=== PATIENT | male | born 1960 ===

== ENCOUNTER 2016-03-24 19:58 | Emergency (ER) | payer MEDICARE, OTHER ==
[~2016-03-24 19:58] MED LIST: PERCOCET1 TA1 PO; [UNRECOGNIZED DRUG - OTHER]
--- NOTE | 2016-03-24 23:25 | DIAGNOSTIC IMAGING REPORT ---
PROCEDURE: CT ABD/PELVIS WITH CONTRAST INDICATION: Lower abdominal and pelvic pain. Status post partial colectomy and left colostomy for colon carcinoma. TECHNIQUE: 145 ml of Isovue 300 were injected intravenously and axial images were obtained of the entire abdomen and pelvis with sagittal and coronal reformations. COMPARISON: Comparison made to CT abdomen and pelvis on 02/24/2015. FINDINGS: ABDOMEN: Status post right lobe hepatectomy. Liver is otherwise normal. Status post cholecystectomy. Spleen, pancreas, kidneys, and aorta are normal. Status post partial colectomy and left lower quadrant colostomy. Left lower quadrant colostomy. Bowel pattern is normal, including appendix. PELVIS: Status post low anterior pelvic resection (surgical mesh). There is mild increased to 0.9 cm soft tissue mass along the lateral margin of the rectum. Pelvic structures are otherwise normal. No evidence of free fluid. IMPRESSION: 1. Status post right hepatectomy and cholecystectomy. 2. Status post left lower quadrant colostomy. 3. Status post low anterior resection. There is a 3.2 cm nodular mass along the left lateral right common consistent with recurrent neoplasm (previously documented). 4. No evidence of acute process. 5. Findings discussed with Dr. Braulio Oliver. All CT scans at this facility use dose modulation, iterative reconstruction, and/or weight-based dosing when appropriate to reduce radiation dose to as low as reasonably achievable.
--- NOTE | 2016-03-25 00:27 | ED ORDER SUMMARY ---
..... Patient: ORQUIDEA ALBARRAN OrderSheet [facility] VisitID: [id number] [address] [place] [address] 55y, M Registration Date/Time: 03/24/2016 ORDER SHEET Weight: 120.2 kg Allergies: No Known Drug Allergy GENERAL ORDERS: CBC w Diff Urgent (20:48 03/24/2016 Ludmila SU) (Ack 20:54 CHagerty ER Cart Pusher) (21:16 Ale R.N.) CMP Urgent (20:48 03/24/2016 Ludmila SU) (Ack 20:54 Cristin ER Cart Pusher) (21:16 Ale R.N.) UA-Culture if indicated Urgent (20:48 03/24/2016 Ludmila SU) (Ack 20:54 Cristin ER Cart Pusher) (21:16 Ale R.N.) Amylase Urgent (20:48 03/24/2016 Ludmila SU) (Ack 20:54 CHagdunia ER Cart Pusher) (21:16 Ale R.N.) Lipase Urgent (20:48 03/24/2016 Ludmila SU) (Ack 20:54 Cristin ER Cart Pusher) (21:16 Elyelli R.N.) CT Abd/Pel w Cont (No) (N/A) Urgent (21:17 03/24/2016 Herman Mendez) (Ack 21:23 CHagerty ER Cart Pusher) (22:17 Ale R.N.) MEDICATION ORDERS: IV FLUIDS: IV NS : initial bolus 500 mL (1000 mL/hr), then 125 mL/hr for 4h (NOW); Urgent (20:48 03/24/2016 Ludmila SU) (21:27 Ale R.N.) Toradol IV 30 mg (NOW) (20:48 03/24/2016 Ludmila SU) (21:38 Ale R.N.) Dilaudid IV 0.5 mg (HIGH ALERT MEDICATION, NOW) (20:48 03/24/2016 Ludmila SU) (21:37 Ale R.N.) Zofran IV 4 mg (NOW) (20:48 03/24/2016 Ludmila SU) (21:36 Ale White) ORDER SHEET NOTES: [Electronically signed by Fred Cao R.N. (03:04 03/25/2016)] [Electronically signed by Braulio Oliver Dr. (11:40 03/28/2016)] [Electronically locked/signed by Fred Cao R.N. (03:04 03/25/2016)]
--- NOTE | 2016-03-25 00:27 | ED CLINICAL REPORT ---
Clinical Report - Physicians/Mid Levels [facility] [address] [place] [address] 03/24/2016 19:59 Patient: ORQUIDEA ALBARRAN Time Seen: 20:26. Arrived- By private vehicle. Historian- patient. HISTORY OF PRESENT ILLNESS Chief Complaint: FLANK PAIN. At its maximum, severity described as 8 / 10. When seen in the E.D., severity described as 7 / 10. This started about 1 1/2 weeks ago and is still present. It was gradual in onset and has been constant and waxing/waning. It is described as cramping and it is described as located in the right flank and radiating to the abdomen. No nausea or vomiting. He has had loss of appetite and loose stools. (Patient has a history of anal cancer. He underwent resection of this and 18 cm of his colon. He has a colostomy in his left lower quadrant. In addition to the flank pain, he is reporting pain in the area where his anus and rectum used to be). Similar symptoms previously: REVIEW OF SYSTEMS The patient has had fever, chills and burning pain on urination. It has occurred during urination and experienced sweats. No calf pain, chest pain, cough, difficulty breathing or pedal edema. No palpitations, black stools or bloody stools. All systems otherwise negative, except as recorded above. PAST HISTORY PCP - [facility]. Problems: Thyroid Disease. Rectal Bleed. Acute Pain. Sciatica. Cancer. Cancer. Additional Surgeries: Colon resection 18 in. Colonoscopy. Hand surgery []. Liver resection. Tonsillectomy. Medications: Levothyroxine Sodium Oral. Allergies: No Known Drug Allergy. SOCIAL HISTORY Never smoker. No alcohol use or drug use. Residence: [facility] he lives with spouse. FAMILY HISTORY Cancer in first-degree relative (mother and father). ADDITIONAL NOTES The nursing notes have been reviewed. PHYSICAL EXAM Vital Signs: 03/24/2016 20:06 BP: 149/77. HR: 113. RR: 18. O2 saturation: 95%. Temp: 101.2 F. Pain level now: 02/14. Have been reviewed. Appearance: Alert. Eyes: Pupils equal, round and reactive to light. ENT: Pharynx normal. Neck: Normal inspection. Neck supple. CVS: Normal heart rate and rhythm. Heart sounds normal. Respiratory: No respiratory distress. Breath sounds normal. Abdomen: Obese. Multiple surgical scars present. (LLQ ostomy). Back: Normal inspection. No CVA tenderness. Rectal: (a healed surgical scar at the site where his anus used to be). Extremities: Extremities exhibit normal ROM. No calf tenderness. No lower extremity edema. LABS, X-RAYS, AND EKG Abdominal CT: PROCEDURE: CT ABD/PELVIS WITH CONTRAST INDICATION: Lower abdominal and pelvic pain. Status post partial colectomy and left colostomy for colon carcinoma. TECHNIQUE: 145 ml of Isovue 300 were injected intravenously and axial images were obtained of the entire abdomen and pelvis with sagittal and coronal reformations. COMPARISON: Comparison made to CT abdomen and pelvis on 02/24/2015. FINDINGS: ABDOMEN: Status post right lobe hepatectomy. Liver is otherwise normal. Status post cholecystectomy. Spleen, pancreas, kidneys, and aorta are normal. Status post partial colectomy and left lower quadrant colostomy. Left lower quadrant colostomy. Bowel pattern is normal, including appendix. PELVIS: Status post low anterior pelvic resection (surgical mesh). There is mild increased to 0.9 cm soft tissue mass along the lateral margin of the rectum. Pelvic structures are otherwise normal. No evidence of free fluid. IMPRESSION: 1. Status post right hepatectomy and cholecystectomy. 2. Status post left lower quadrant colostomy. 3. Status post low anterior resection. There is a 3.2 cm nodular mass along the left lateral right common consistent with recurrent neoplasm (previously documented). 4. No evidence of acute process. Study type: abdomen and pelvis. Abdominal CT performed with IV contrast. The study was independently viewed by me and interpreted by the radiologist. The study was discussed with the radiologist (via phone). Laboratory Tests: UA-Culture if indicated: (PAUL: 03/24/2016 21:15) ( MsgRcvd 03/24/2016 21:55) Final results Test Result Flag Units (Reference) URINE COLOR YELLOW URINE APPEARANCE CLEAR URINE GLUCOSE NEGATIVE (NEGATIVE) URINE BILIRUBIN NEGATIVE (NEGATIVE) URINE KETONE NEGATIVE (NEGATIVE) URINE SPECIFIC GRAVITY 1.015 (1.010-1.030) URINE PH 7.5 (5.0-8.0) URINE PROTEIN TRACE (NEGATIVE) URINE UROBILINOGEN 2.0 EU/dL (0.2-1.0) The urobilinogen reagent area may react with interferingsubstances known to react with Josefina's reagent such asp-aminosalicylic acid and sulfonamides. Atypical colorreactions may be obtained in the presence of highconcentrations of p-aminobenzoic acid. The absence ofurobilinogen cannot be determined with this test. URINE NITRITE NEGATIVE (NEGATIVE) URINE BLOOD 2+ (NEGATIVE) URINE LEUK ESTERASE NEGATIVE (NEGATIVE) URINE RBC 3-5 rbc/hpf (0-1) URINE WBC 1-3 wbc/hpf (0-1) URINE EPITHELIAL CELLS 1-3 EPI/hpf (0-5) URINE BACTERIA TRACE (<1+) (NONE SEEN) URINE COMMENT CULT NOT INDICATED AMORPHOUS CRYSTALS 2+URINE CULTURES ARE SET-UP BASED ON THE FOLLOWING CRITERIA:POSITIVE NITRITEPOSITIVE LEUKOCYTE ESTERASEGREATER THAN 10 WHITE BLOOD CELLSMODERATE (2+) OR GREATER BACTERIA CBC w Diff: (PAUL: 03/24/2016 21:15) ( MsgRcvd 03/24/2016 21:50) Final results Test Result Flag Units (Reference) WHITE BLOOD COUNT 13.0 H K/uL (4.5-11.5) RED BLOOD COUNT 4.34 L M/uL (4.50-5.90) HEMOGLOBIN 12.7 L gm/dL (13.5-17.5) HEMATOCRIT 37.3 L % (41.0-53.0) MEAN CELL VOLUME 86 fL (80-100) MEAN CORPUSCULAR HGB 29 pg (26-34) MEAN CORPUSCULAR HGB CONC 34 g/dL (31-37) RED CELL DISTRIBUTION WIDTH 15.4 H % (11.6-14.8) PLATELET COUNT 267 K/uL (150-400) NEUTROPHIL % 79.7 H % (50-75) LYMPH % 14.8 L % (25-40) MONO % 4.3 % (3-14) EOSINOPHIL % 0.9 % (0-4) BASOPHIL % 0.3 % (0-2) CMP: (PAUL: 03/24/2016 21:15) ( MsgRcvd 03/24/2016 21:47) Final results Test Result Flag Units (Reference) GLUCOSE 162 H mg/dL (70-110) BUN 10 mg/dL (7-18) CREATININE 1.0 mg/dL (0.6-1.3) Estimated GFR >60 mL/min Estimated GFR- >60 mL/min Note: Persistent reduction over 3 months in eGFR<60 mL/min/1.73 m2 defines CKD. Patients with eGFR values>=60 mL/min/1.73 m2 may also have CKD if evidence ofpersistent proteinuria. Additional information may be foundat www.[email or web address].org. SODIUM 140 mmol/L (136-145) POTASSIUM 3.7 mmol/L (3.5-5.1) CHLORIDE 105 mmol/L (98-107) CARBON DIOXIDE 25 mmol/L (21-32) CALCIUM 8.6 mg/dL (8.5-10.1) TOTAL PROTEIN 7.5 g/dL (6.4-8.2) ALBUMIN 3.0 L g/dL (3.3-5.0) BILIRUBIN, TOTAL 0.5 mg/dL (0.0-1.0) ALKALINE PHOSPHATASE 130 H U/L (46-116) AST (SGOT) 26 U/L (15-37) ALT (SGPT) 44 U/L (12-78) LIPASE 186 U/L (73-393) AMYLASE 38 U/L (25-115) . PROGRESS AND PROCEDURES Course of Care: 21:18 03/24/16. the case was discussed with Dr. Oliver change of shift. We reviewed the patient's history and examination findings. He will follow up on the results the patient's pending studies and will arrange an appropriate disposition for him. - KALYAN the patient is a pleasant 55 yo male with past medical history significant for malignancy presenting for evaluation of flank pain. Studies have been ordered by the prior physician. Acuity assessment and plan. I have introduced myself to the patient and performed my own independent examination. At this time or awaiting laboratory studies and CT scan results. Workup shows patient to have a mild urinary tract infection because of the patient's symptoms, we will treat the patient with antibiotics. No acute abdomen maladies noted on abdominal CT scan except for prior masses noted. Patient appears to be nontoxic and in no acute distress. We'll provide patient with antiemetics and treat conservatively as an outpatient. Do not fill patient is admitted to the hospital at this time or require further emergency department workup. Patient is hemodynamically stable Do not the patient is a surgical abdomen. Do not feel patient's symptoms are related to paraspinal infection or more sinister etiology. Prior to patient's departure from the emergency department repeat examination continues to be benign. Patient is nontoxic. Discussed the patient workup, diagnosis, home care, follow-up, and return precautions. All questions answered. The patient expressed understanding of these instructions and was agreeable to them. CLINICAL IMPRESSION 03/24/2016 20:06 BP: 149/77. HR: 113. RR: 18. O2 saturation: 95%. Temp: 101.2 F. Pain level now: 1/10. Blood pressure normal. Oxygen saturation normal. Mild dehydration (acute fluid responsive). Acute urinary tract infection with cystitis and hematuria. Moderate leukocytosis. INSTRUCTIONS Warnings: GENERAL WARNINGS: Return or contact your physician immediately if your condition worsens or changes unexpectedly, if not improving as expected, or if other problems arise. SPECIFICALLY, return if you develop pain, fever, vomiting, the inability to keep fluids down, blood in vomitus, blood in diarrhea, fainting or lightheadedness. Your Current Medications: CONTINUE TAKING THE FOLLOWING MEDICATIONS: Levothyroxine Sodium Oral. Prescription Medications: [place] 5 mg / 325 mg tablets: take 1 orally every 6 hours as needed for pain. Dispense twelve (12). No refill. Substitution is permissible. Bactrim DS 800 mg / 160 mg: take 1 tablet orally every 12 hours for 10 days. Substitution is permissible. (Disp 20 tabs) Follow-up: Return to the emergency department as needed. Follow up with your doctor in three days. Reason for referral: recheck today's concerns. Summary of care provided to patient via paper. Screening today revealed the patient's blood pressure to be in the normal range. The patient should follow up with a primary care provider for blood pressure management. Understanding of the discharge instructions verbalized by patient. (Electronically signed by Braulio Oliver Dr. 03/28/2016 11:40)
--- NOTE | 2016-03-25 00:27 | ED ORDER SUMMARY ---
..... Patient: ORQUIDEA ALBARRAN OrderSheet [facility] VisitID: [id number] [address] [place] [address] 55y, M Registration Date/Time: 03/24/2016 ORDER SHEET Weight: 120.2 kg Allergies: No Known Drug Allergy GENERAL ORDERS: CBC w Diff Urgent (20:48 03/24/2016 Ludmila SU) (Ack 20:54 CHagerty ER Account Financial Manager) (21:16 Ale R.N.) CMP Urgent (20:48 03/24/2016 Ludmila SU) (Ack 20:54 Cristin ER Account Financial Manager) (21:16 Ale R.N.) UA-Culture if indicated Urgent (20:48 03/24/2016 Ludmila SU) (Ack 20:54 Cristin ER Account Financial Manager) (21:16 Ale R.N.) Amylase Urgent (20:48 03/24/2016 Ludmila SU) (Ack 20:54 CHagdunia ER Account Financial Manager) (21:16 Ale R.N.) Lipase Urgent (20:48 03/24/2016 Ludmila SU) (Ack 20:54 Cristin ER Account Financial Manager) (21:16 Elyelli R.N.) CT Abd/Pel w Cont (No) (N/A) Urgent (21:17 03/24/2016 Herman Mendez) (Ack 21:23 CHagerty ER Account Financial Manager) (22:17 Ale R.N.) MEDICATION ORDERS: IV FLUIDS: IV NS : initial bolus 500 mL (1000 mL/hr), then 125 mL/hr for 4h (NOW); Urgent (20:48 03/24/2016 Ludmila SU) (21:27 Ale R.N.) Toradol IV 30 mg (NOW) (20:48 03/24/2016 Ludmila SU) (21:38 Ale R.N.) Dilaudid IV 0.5 mg (HIGH ALERT MEDICATION, NOW) (20:48 03/24/2016 Ludmila SU) (21:37 Ale R.N.) Zofran IV 4 mg (NOW) (20:48 03/24/2016 Ludmila SU) (21:36 Ale White) ORDER SHEET NOTES: [Electronically signed by Fred Cao R.N. (03:04 03/25/2016)] [Electronically signed by Braulio Oliver Dr. (11:40 03/28/2016)] [Electronically locked/signed by Fred Cao R.N. (03:04 03/25/2016)]
--- NOTE | 2016-03-25 00:27 | ED NURSING NOTES ---
Clinical Report - Nurses [facility] [address] [place] [address] 03/24/2016 19:59 Patient: ORQUIDEA ALBARRAN TRIAGE Triage time 20:05 Mar 24 2016. Acuity: LEVEL 3. Chief Complaint: (Anal Pain, which pt attributes to colon surgery.). Alert. GULSHAN COMA SCORE: [place] Coma Scale: 15- eyes open spontaneously (4); best verbal response- oriented x 4 (5); best motor response- obeys commands (6). --20:18 Fred Lal R.N. 20:06 03/24/16. BP: 149/77. HR: 113. RR: 18. O2 saturation: 95%. Temp: 101.2 F. Pain level now: 02/14. Additional comments: but 7-8 when he starts to move. --20:18 Fred Lal R.N. SEPSIS SCREEN: Sepsis Screen. Infection suspected/documented. Temperature greater than 38.3 degrees C (101 degrees F). No acute mental status change. --20:18 Fred Lal R.N. Weight: 120.2 kg. Height/Length: 69 inches Per Patient. BMI: 39.2. --20:15 Fred Lal R.N. Medications Lobaxil 175mcg daily. --20:11 Fred Lal R.N. Allergies No Known Drug Allergy. --20:11 Fred Lal R.N. History Arrived by private vehicle. Historian: patient. Primary physician (Rory Draper [facility] (surgeon). PCP is [facility].). ( Colon surgery 9-10 months ago where a colostomy was placed. Pt states that he had some pain ever since the surgery and now it has worsened in the last month.). Onset. (about month ago). He has had fever. ( Feet are hurting and weakness). 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 PAST MEDICAL HX: Immunizations: status is unknown. SOCIAL HX: Former smoker, end date 1996. Alcohol use. (27 years ago). No drug use. No infectious disease exposure. ABUSE ASSESSMENT: No report of abuse. FALL RISK ASSESSMENT: Fall risk assessment completed. No fall risk identified. NUTRITIONAL RISK ASSESSMENT: The nutritional risk assessment revealed no deficiencies. FUNCTIONAL ASSESSMENT: Functional assessment: no impairments noted. LEARNING NEEDS ASSESSMENT: The learning needs assessment revealed no barriers. SKIN INTEGRITY ASSESSMENT: Skin integrity risk assessment completed. No skin integrity risk identified. --20:18 Fred Lal R.N. PROBLEMS: Thyroid Disease. Rectal Bleed. Acute Pain. Sciatica. Immunizations. Cancer. Cancer. --20:13 Fred Lal R.N. ADDITIONAL SURGERIES: Colon resection 18 in. Colonoscopy. Hand surgery []. Liver resection. Tonsillectomy. --20:13 Fred Lal R.N. Interventions ID band on patient. To treatment room. --20:18 Fred Lal R.N. PHYSICAL ASSESSMENT Ambulatory to room. GENERAL / NEURO / PSYCH: Alert. Oriented X 4. HEENT: No facial asymmetry noted. Mucous membranes are pink. RESPIRATORY: Breath sounds within normal limits. ( "pain in the (R) Lung/Ribs). CVS: Capillary refill less than 2 seconds. Pulses within normal limits. GI / : Abdomen soft. SKIN: Skin intact. Skin is warm and dry. Normal skin turgor. --20:19 Fred Lal R.N. NURSING PROGRESS NOTES Patient gowned. Reassurance given to the patient and patient's family. Patient identifiers checked. Call light placed in reach. Side rails up x 1. Bed placed in lowest position. Brakes of bed on. Patient ready for evaluation- chart flagged and ED physician notified. --20:20 Fred Lal R.N. 21:17 03/24/2016 Site #1 started via IV in the right wrist with an 20g angiocath, with aseptic technique and good blood return; one attempt. Blood drawn: rainbow set. Saline lock flushed with 10 mL saline. --21:17 Fred Lal R.N. 21:22 03/24/2016 Started bag #1 1000 mL IV Fluids IV NS (Saline); bolus of 500 mL over 30 minute(s) then at 125 mL/hr over 4 hour(s) via site #1 via IV pump. Allergies verified and confirmed 5 rights. IV patency established. IV site checked: no pain, redness, or swelling. IV flushed thoroughly pre- and post-medication administration. --21:27 Fred Lal R.N. 21:26 03/24/2016 Zofran (Ondansetron HCl) IVP 4 mg given over 2 minute(s) via site #1. Allergies verified and confirmed 5 rights. IV patency established. IV site checked: no pain, redness, or swelling. IV flushed thoroughly pre- and post-medication administration. IVP given by RN. --21:36 Fred Lal R.N. 21:32 03/24/2016 Dilaudid (HYDROmorphone HCl PF) IVP 0.5 mg given over 2 minute(s) via site #1. Allergies verified, confirmed 5 rights and sedative warning given. IV patency established. IV site checked: no pain, redness, or swelling. IV flushed thoroughly pre- and post-medication administration. IVP given by RN. --21:37 Fred Lal R.N. 21:35 03/24/2016 Toradol IVP 30 mg given over 2 minute(s) via site #1. Allergies verified and confirmed 5 rights. IV patency established. IV site checked: no pain, redness, or swelling. IV flushed thoroughly pre- and post-medication administration. IVP given by RN. --21:38 Fred Lal R.N. Patient transported to [place] by stretcher with [employer]. (22:10 Mar 24 2016). --22:18 Fred Lal R.N. 01:30. The patient is calm and resting quietly. RESPIRATORY: No respiratory distress. SKIN: Skin is warm and dry. Skin color within normal limits. --01:35 Fred Cao R.N. 01:26 03/25/2016 IV Fluids IV NS Discontinued: bag #1 infused upon discharge. Total amount infused: 1000 mL. IV patency established. IV site checked: no pain, redness, or swelling. IV flushed thoroughly. --01:37 Fred Cao R.N. DISPOSITION / DISCHARGE 01:27 03/25/2016 Site #1 removed upon discharge. Catheter intact. Bandage applied. --01:33 Fred Cao R.N. Departure time: 01:33. Condition at departure: stable. No learning barriers present. Discharge instructions provided and reviewed with the patient. Reviewed medication(s) side effects, precautions, dosing and course information. Prescription(s) given to the patient. Patient verbalized understanding. Written instructions provided in [place]. The patient was discharged home and accompanied by spouse. He left the Emergency Department ambulatory and via private vehicle. Spouse driving. FALL RISK ASSESSMENT: Fall risk assessment completed. No fall risk identified. --01:34 Fred Cao R.N. 01:25 03/25/16. BP: 120/57. HR: 73. RR: 16. O2 saturation: 99% on room air. Temp: 98.1 F (oral). Pain level now: 04/14. --01:34 Fred Cao R.N. Locked/Released at 03/25/2016 3:04 by Fred Cao R.N.
--- NOTE | 2016-03-25 00:27 | ED NURSING NOTES ---
Clinical Report - [facility] [address] [place] [address] 03/24/2016 19:59 Patient: ORQUIDEA ALBARRAN TRIAGE Triage time 20:05 Mar 24 2016. Acuity: LEVEL 3. Chief Complaint: (Anal Pain, which pt attributes to colon surgery.). Alert. GULSHAN COMA SCORE: [place] Coma Scale: 15- eyes open spontaneously (4); best verbal response- oriented x 4 (5); best motor response- obeys commands (6). --20:18 Fred Lal R.N. 20:06 03/24/16. BP: 149/77. HR: 113. RR: 18. O2 saturation: 95%. Temp: 101.2 F. Pain level now: 02/14. Additional comments: but 7-8 when he starts to move. --20:18 Fred Lal R.N. SEPSIS SCREEN: Sepsis Screen. Infection suspected/documented. Temperature greater than 38.3 degrees C (101 degrees F). No acute mental status change. --20:18 Fred Lal R.N. Weight: 120.2 kg. Height/Length: 69 inches Per Patient. BMI: 39.2. --20:15 Fred Lal R.N. Medications Lobaxil 175mcg daily. --20:11 Fred Lal R.N. Allergies No Known Drug Allergy. --20:11 Fred Lal R.N. History Arrived by private vehicle. Historian: patient. Primary physician (Rory Draper [facility] (surgeon). PCP is [facility] ( Colon surgery 9-10 months ago where a colostomy was placed. Pt states that he had some pain ever since the surgery and now it has worsened in the last month.). Onset. (about month ago). He has had fever. ( Feet are hurting and weakness). 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 PAST MEDICAL HX: Immunizations: status is unknown. SOCIAL HX: Former smoker, end date 1996. Alcohol use. (27 years ago). No drug use. No infectious disease exposure. ABUSE ASSESSMENT: No report of abuse. FALL RISK ASSESSMENT: Fall risk assessment completed. No fall risk identified. NUTRITIONAL RISK ASSESSMENT: The nutritional risk assessment revealed no deficiencies. FUNCTIONAL ASSESSMENT: Functional assessment: no impairments noted. LEARNING NEEDS ASSESSMENT: The learning needs assessment revealed no barriers. SKIN INTEGRITY ASSESSMENT: Skin integrity risk assessment completed. No skin integrity risk identified. --20:18 Fred Lal R.N. PROBLEMS: Thyroid Disease. Rectal Bleed. Acute Pain. Sciatica. Immunizations. Cancer. Cancer. --20:13 Fred Lal R.N. ADDITIONAL SURGERIES: Colon resection 18 in. Colonoscopy. Hand surgery []. Liver resection. Tonsillectomy. --20:13 Ferd Lal R.N. Interventions ID band on patient. To treatment room. --20:18 Fred Lal R.N. PHYSICAL ASSESSMENT Ambulatory to room. GENERAL / NEURO / PSYCH: Alert. Oriented X 4. HEENT: No facial asymmetry noted. Mucous membranes are pink. RESPIRATORY: Breath sounds within normal limits. ( "pain in the (R) Lung/Ribs). CVS: Capillary refill less than 2 seconds. Pulses within normal limits. GI / : Abdomen soft. SKIN: Skin intact. Skin is warm and dry. Normal skin turgor. --20:19 Fred Lal R.N. NURSING PROGRESS NOTES Patient gowned. Reassurance given to the patient and patient's family. Patient identifiers checked. Call light placed in reach. Side rails up x 1. Bed placed in lowest position. Brakes of bed on. Patient ready for evaluation- chart flagged and ED physician notified. --20:20 Fred Lal R.N. 21:17 03/24/2016 Site #1 started via IV in the right wrist with an 20g angiocath, with aseptic technique and good blood return; one attempt. Blood drawn: rainbow set. Saline lock flushed with 10 mL saline. --21:17 Fred Lal R.N. 21:22 03/24/2016 Started bag #1 1000 mL IV Fluids IV NS (Saline); bolus of 500 mL over 30 minute(s) then at 125 mL/hr over 4 hour(s) via site #1 via IV pump. Allergies verified and confirmed 5 rights. IV patency established. IV site checked: no pain, redness, or swelling. IV flushed thoroughly pre- and post-medication administration. --21:27 Fred Lal R.N. 21:26 03/24/2016 Zofran (Ondansetron HCl) IVP 4 mg given over 2 minute(s) via site #1. Allergies verified and confirmed 5 rights. IV patency established. IV site checked: no pain, redness, or swelling. IV flushed thoroughly pre- and post-medication administration. IVP given by RN. --21:36 Fred Lal R.N. 21:32 03/24/2016 Dilaudid (HYDROmorphone HCl PF) IVP 0.5 mg given over 2 minute(s) via site #1. Allergies verified, confirmed 5 rights and sedative warning given. IV patency established. IV site checked: no pain, redness, or swelling. IV flushed thoroughly pre- and post-medication administration. IVP given by RN. --21:37 Fred Lal R.N. 21:35 03/24/2016 Toradol IVP 30 mg given over 2 minute(s) via site #1. Allergies verified and confirmed 5 rights. IV patency established. IV site checked: no pain, redness, or swelling. IV flushed thoroughly pre- and post-medication administration. IVP given by RN. --21:38 Fred Lal R.N. Patient transported to NH by stretcher with [employer]. (22:10 Mar 24 2016). --22:18 Fred Lal R.N. 01:30. The patient is calm and resting quietly. RESPIRATORY: No respiratory distress. SKIN: Skin is warm and dry. Skin color within normal limits. --01:35 Fred Cao R.N. 01:26 03/25/2016 IV Fluids IV NS Discontinued: bag #1 infused upon discharge. Total amount infused: 1000 mL. IV patency established. IV site checked: no pain, redness, or swelling. IV flushed thoroughly. --01:37 Fred Cao R.N. DISPOSITION / DISCHARGE 01:27 03/25/2016 Site #1 removed upon discharge. Catheter intact. Bandage applied. --01:33 Fred Cao R.N. Departure time: 01:33. Condition at departure: stable. No learning barriers present. Discharge instructions provided and reviewed with the patient. Reviewed medication(s) side effects, precautions, dosing and course information. Prescription(s) given to the patient. Patient verbalized understanding. Written instructions provided in [place]. The patient was discharged home and accompanied by spouse. He left the Emergency Department ambulatory and via private vehicle. Spouse driving. FALL RISK ASSESSMENT: Fall risk assessment completed. No fall risk identified. --01:34 Fred Cao R.N. 01:25 03/25/16. BP: 120/57. HR: 73. RR: 16. O2 saturation: 99% on room air. Temp: 98.1 F (oral). Pain level now: 04/14. --01:34 Fred Cao R.N. Locked/Released at 03/25/2016 3:04 by Fred Cao R.N.
--- NOTE | 2016-03-28 11:40 | ED MAR SUMMARY ---
..... Medication Administration Record [facility] [address] [place] [address] Patient: ORQUIDEA ALBARRAN Visit ID: [id number] 55y, M Weight: 120.2 kg Height/Length: 69 in BMI: 39.2 ALLERGIES: No Known Drug Allergy Start 21:03/24/2016 Fred Lal R.N., Stop 01:03/25/2016 Fred Cao R.N. Medication Administered: IV NS (SALINE), Dose: IV Fluids over 4 hour(s), Rate: 125 mL/hr, Bolus: 500 mL over 30 minute(s), Dispensed: 1000 mL bag, Site: #1 right wrist. Medication Ordered: IV NS : initial bolus 500 mL (1000 mL/hr), then 125 mL/hr for 4h (NOW); Urgent. Given :03/24/2016 Fred Lal R.N. Medication Administered: ZOFRAN [IVP] (ONDANSETRON HCL), Dose: 4 mg IVP over 2 minute(s), Site: #1 right wrist. Medication Ordered: Zofran IV 4 mg (NOW). Given :03/24/2016 Fred Lal R.N. Medication Administered: DILAUDID [IVP] (HYDROMORPHONE HCL PF), Dose: 0.5 mg IVP over 2 minute(s), Site: #1 right wrist. Medication Ordered: Dilaudid IV 0.5 mg (HIGH ALERT MEDICATION, NOW). Given :03/24/2016 Fred Lal R.N. Medication Administered: TORADOL [IVP], Dose: 30 mg IVP over 2 minute(s), Site: #1 right wrist. Medication Ordered: Toradol IV 30 mg (NOW).
--- NOTE | 2016-03-28 11:40 | ED MED RECONCILIATION SUMMARY ---
Patient: ORQUIDEA ALBARRAN Medication Reconciliation Report [facility] VisitID: [id number] [address] [place] [address] 55y, M Registration Date/Time: 03/24/2016 Weight: 120.2 kg Height/Length: 69 in. BMI: 39.2 ALLERGIES: No Known Drug Allergy The patient's Home Medications are listed below: CONTINUE TAKING THE FOLLOWING MEDICATIONS: Levothyroxine Sodium Oral The source(s) of the original Home Medication information: Not obtained. The following Medications were given to the patient in the Emergency Department: IV NS IV Fluids bolus 500 mL over 30 minute(s), then 125 mL/hr, administered: 03/24/2016 9:22:00 PM Zofran [IVP] IVP 4 mg, administered: 03/24/2016 9:26:00 PM Dilaudid [IVP] IVP 0.5 mg, administered: 03/24/2016 9:32:00 PM Toradol [IVP] IVP 30 mg, administered: 03/24/2016 9:35:00 PM The following Medications were prescribed to the patient: [place] 5 mg / 325 mg tablets: take 1 orally every 6 hours as needed for pain. Dispense twelve (12). No refill. Substitution is permissible. -- Braulio Oliver Dr. Bactrim DS 800 mg / 160 mg: take 1 tablet orally every 12 hours for 10 days. Substitution is permissible.(Disp 20 tabs) -- Braulio Oliver Dr.
--- NOTE | 2016-03-28 11:40 | ED DISCHARGE INSTRUCTIONS ---
Patient: ORQUIDEA ALBARRAN General Instructions [facility] VisitID: [id number] [place] [address] 55y, M Registration Date/Time: 03/24/2016 03/24/2016 20:06 BP: 149/77. HR: 113. RR: 18. O2 saturation: 95%. Temp: 101.2 F. Pain level now: 02/14. Blood pressure normal. Oxygen saturation normal. Mild dehydration (acute fluid responsive). Acute urinary tract infection with cystitis and hematuria. Moderate leukocytosis. INSTRUCTIONS Warnings: GENERAL WARNINGS: Return or contact your physician immediately if your condition worsens or changes unexpectedly, if not improving as expected, or if other problems arise. SPECIFICALLY, return if you develop pain, fever, vomiting, the inability to keep fluids down, blood in vomitus, blood in diarrhea, fainting or lightheadedness. Your Current Medications: CONTINUE TAKING THE FOLLOWING MEDICATIONS: Levothyroxine Sodium Oral. Prescription Medications: [place] 5 mg / 325 mg tablets: take 1 orally every 6 hours as needed for pain. Dispense twelve (12). No refill. Substitution is permissible. Bactrim DS 800 mg / 160 mg: take 1 tablet orally every 12 hours for 10 days. Substitution is permissible. (Disp 20 tabs) Follow-up: Return to the emergency department as needed. Follow up with your doctor in three days. Reason for referral: recheck today's concerns. Summary of care provided to patient via paper. Screening today revealed the patient's blood pressure to be in the normal range. The patient should follow up with a primary care provider for blood pressure management. Understanding of the discharge instructions verbalized by patient. ADDITIONAL INFORMATION Bladder Infection,Male (Adult) A bladder infection ("cystitis" or "UTI") usually causes a constant urge to urinate, and a burning when passing urine. Urine may be cloudy, smelly or dark. There may be also be pain in the lower abdomen. Cystitis in males is not common. It may be caused by a partial blockage in the urinary system that keeps the bladder from emptying completely. This is most often related to an enlarged prostate gland. Home Care: Drink lots of fluids (at least 6-8 glasses a day). This will flush the bacteria out of your bladder. Avoid sexual intercourse until your symptoms are gone. Avoid caffeine, alcohol, and spicy foods. They could irritate the bladder. A bladder infection is treated with antibiotics. You may also be given Pyridium (generic - phenazopyridine) to reduce burning with urination. This will cause urine to become a bright orange color, which can stain clothing. Follow Up with your doctor or this facility if ALL symptoms have not cleared within five days. It is important to keep your follow up appointment to discuss with your doctor the need for further tests of the urinary tract. Get Prompt Medical Attention if any of the following occur: Fever of 100.4F (38C) or higher, or as directed by your healthcare provider No improvement by the third day of treatment Increasing back or abdominal pain Repeated vomiting; unable to keep medicine down Weakness, dizziness or fainting Dehydration (Adult) Dehydration occurs when your body loses too much fluid. This may be the result of vomiting a lot or from diarrhea,sweating a lot, or a high fever. It may also happen if you dont drink enough fluid when youre sick. Misuse of diuretics (water pills) can also be a cause. Symptoms include thirst and feeling dizzy, weak, fatigued, or very drowsy. The diet described below is usually enough to treat most cases. Sometimes you may needmedicine. Home Care Follow these guidelines for home care: Drink at least 12 8-ounce glasses of fluid every day to overcome the dehydration. Fluid may include water; orange juice; lemonade; apple, grape, and cranberry juice; clear fruit drinks; electrolyte replacement and sports drinks; and teas and coffee without caffeine. If you have been diagnosed with a kidney disease, ask your doctor how much and what types of fluids you should drink to prevent dehydration. If you have kidney disease, drinking too much fluid can cause it build up in the your body and be dangerous to your health. If you have fever, muscle aching, or headache from a viral syndrome, you may useacetaminophen or ibuprofen, unless another medicine was prescribed for this.If you have chronic liver or kidney disease or ever had a stomach ulcer or GI bleeding, talk with your doctor before using these medicines. Don't take aspirin if you are younger than 18 and are ill with a fever.Aspirin raises the chance forsevere liver injury. Follow-up care Follow up with your health care provider if you don't get better in the next 24 to 48 hours. When to seek medical care Get prompt medical attention if any of theseoccur: Continued vomiting (cant keep liquids down) Frequent diarrhea (more than 5 times a day); blood (red or black color) or mucus in diarrhea Blood in vomit or stool Swollen abdomen or increasing abdominal pain Weakness, dizziness, or fainting Unusually drowsy or confused Reduced urine output or extreme thirst Fever of 100.4 F (38 C) oral or higher that does not get better with fever medication Hydrocodone Bitartrate, Acetaminophen Oral tablet What is this medicine? ACETAMINOPHEN; HYDROCODONE (a set a BALWINDER cristopher fen; donny droe KOE done) is a pain reliever. It is used to treat mild to moderate pain. How should I use this medicine? Take this medicine by mouth. Swallow it with a full glass of water. Follow the directions on the prescription label. If the medicine upsets your stomach, take the medicine with food or milk. Do not take more than you are told to take. Talk to your design consultant regarding the use of this medicine in children. This medicine is not approved for use in children. What side effects may I notice from receiving this medicine? Side effects that you should report to your doctor or health intensive care unit nurse as soon as possible: allergic reactions like skin rash, itching or hives, swelling of the face, lips, or tongue breathing problems confusion feeling faint or lightheaded, falls stomach pain yellowing of the eyes or skin Side effects that usually do not require medical attention (report to your doctor or health intensive care unit nurse if they continue or are bothersome): nausea, vomiting stomach upset What may interact with this medicine? alcohol antihistamines isoniazid medicines for depression, anxiety, or psychotic disturbances medicines for sleep muscle relaxants naltrexone narcotic medicines (opiates) for pain phenobarbital ritonavir tramadol What if I miss a dose? If you miss a dose, take it as soon as you can. If it is almost time for your next dose, take only that dose. Do not take double or extra doses. Where should I keep my medicine? Keep out of the reach of children. This medicine can be abused. Keep your medicine in a safe place to protect it from theft. Do not share this medicine with anyone. Selling or giving away this medicine is dangerous and against the law. Store at room temperature between 15 and 30 degrees C (59 and 86 degrees F). Protect from light. Keep container tightly closed. Throw away any unused medicine after the expiration date. Discard unused medicine and used packaging carefully. Pets and children can be harmed if they find used or lost packages. What should I tell my health care provider before I take this medicine? They need to know if you have any of these conditions: brain tumor Crohn's disease, inflammatory bowel disease, or ulcerative colitis drink more than 3 alcohol-containing drinks per day drug abuse or addiction head injury heart or circulation problems kidney disease or problems going to the bathroom liver disease lung disease, asthma, or breathing problems an unusual or allergic reaction to acetaminophen, hydrocodone, other opioid analgesics, other medicines, foods, dyes, or preservatives or trying to get breast-feeding What should I watch for while using this medicine? Tell your doctor or health intensive care unit nurse if your pain does not go away, if it gets worse, or if you have new or a different type of pain. You may develop tolerance to the medicine. Tolerance means that you will need a higher dose of the medicine for pain relief. Tolerance is normal and is expected if you take the medicine for a long time. Do not suddenly stop taking your medicine because you may develop a severe reaction. Your body becomes used to the medicine. This does NOT mean you are addicted. Addiction is a behavior related to getting and using a drug for a non-medical reason. If you have pain, you have a medical reason to take pain medicine. Your doctor will tell you how much medicine to take. If your doctor wants you to stop the medicine, the dose will be slowly lowered over time to avoid any side effects. You may get drowsy or dizzy when you first start taking the medicine or change doses. Do not drive, use machinery, or do anything that may be dangerous until you know how the medicine affects you. Stand or sit up slowly. There are different types of narcotic medicines (opiates) for pain. If you take more than one type at the same time, you may have more side effects. Give your health care provider a list of all medicines you use. Your doctor will tell you how much medicine to take. Do not take more medicine than directed. Call emergency for help if you have problems breathing. The medicine will cause constipation. Try to have a bowel movement at least every 2 to 3 days. If you do not have a bowel movement for 3 days, call your doctor or health intensive care unit nurse. Too much acetaminophen can be very dangerous. Do not take Tylenol (acetaminophen) or medicines that contain acetaminophen with this medicine. Many non-prescription medicines contain acetaminophen. Always read the labels carefully. Sulfamethoxazole, Trimethoprim Oral tablet What is this medicine? SULFAMETHOXAZOLE; TRIMETHOPRIM or SMX-TMP (suhl fuh meth OK loi zohl; trye METH oh prim) is a combination of a sulfonamide antibiotic and a second antibiotic, trimethoprim. It is used to treat or prevent certain kinds of bacterial infections. It will not work for colds, flu, or other viral infections. How should I use this medicine? Take this medicine by mouth with a full glass of water. Follow the directions on the prescription label. Take your medicine at regular intervals. Do not take it more often than directed. Do not skip doses or stop your medicine early. Talk to your design consultant regarding the use of this medicine in children. Special care may be needed. This medicine has been used in children as young as 2 months of age. What side effects may I notice from receiving this medicine? Side effects that you should report to your doctor or health intensive care unit nurse as soon as possible: allergic reactions like skin rash or hives, swelling of the face, lips, or tongue breathing problems fever or chills, sore throat irregular heartbeat, chest pain joint or muscle pain pain or difficulty passing urine red pinpoint spots on skin redness, blistering, peeling or loosening of the skin, including inside the mouth unusual bleeding or bruising unusually weak or tired yellowing of the eyes or skin Side effects that usually do not require medical attention (report to your doctor or health intensive care unit nurse if they continue or are bothersome): diarrhea dizziness headache loss of appetite nausea, vomiting nervousness What may interact with this medicine? Do not take this medicine with any of the following medications: aminobenzoate potassium dofetilide metronidazole This medicine may also interact with the following medications: JIM inhibitors like benazepril, enalapril, lisinopril, and ramipril cyclosporine digoxin diuretics indomethacin medicines for diabetes methenamine methotrexate phenytoin potassium supplements pyrimethamine sulfinpyrazone tricyclic antidepressants warfarin What if I miss a dose? If you miss a dose, take it as soon as you can. If it is almost time for your next dose, take only that dose. Do not take double or extra doses. Where should I keep my medicine? Keep out of the reach of children. Store at room temperature between 20 to 25 degrees C (68 to 77 degrees F). Protect from light. Throw away any unused medicine after the expiration date. What should I tell my health care provider before I take this medicine? They need to know if you have any of these conditions: anemia asthma being treated with anticonvulsants if you frequently drink alcohol containing drinks kidney disease liver disease low level of folic acid or [id number] dehydrogenase poor nutrition or malabsorption porphyria severe allergies thyroid disorder an unusual or allergic reaction to sulfamethoxazole, trimethoprim, sulfa drugs, other medicines, foods, dyes, or preservatives or trying to get breast-feeding What should I watch for while using this medicine? Tell your doctor or health intensive care unit nurse if your symptoms do not improve. Drink several glasses of water a day to reduce the risk of kidney problems. Do not treat diarrhea with over the counter products. Contact your doctor if you have diarrhea that lasts more than 2 days or if it is severe and watery. This medicine can make you more sensitive to the sun. Keep out of the sun. If you cannot avoid being in the sun, wear protective clothing and use a sunscreen. Do not use sun lamps or tanning beds/booths. You have been given the following additional information: Bladder Infection, Male (Adult) Dehydration (Adult) Hydrocodone Bitartrate, Acetaminophen Oral tablet Sulfamethoxazole, Trimethoprim Oral tablet (Electronically signed by Braulio Oliver Dr. 03/28/2016 11:40)
--- NOTE | 2016-03-28 11:40 | ED MAR SUMMARY ---
..... Medication Administration Record [facility] [address] [place] [place] [address] Patient: ORQUIDEA ALBARRAN Visit ID: [id number] 55y, M Weight: 120.2 kg Height/Length: 69 in BMI: 39.2 ALLERGIES: No Known Drug Allergy Start 21:03/24/2016 Fred Lal R.N., Stop 01:03/25/2016 Fred Cao R.N. Medication Administered: IV NS (SALINE), Dose: IV Fluids over 4 hour(s), Rate: 125 mL/hr, Bolus: 500 mL over 30 minute(s), Dispensed: 1000 mL bag, Site: #1 right wrist. Medication Ordered: IV NS : initial bolus 500 mL (1000 mL/hr), then 125 mL/hr for 4h (NOW); Urgent. Given :03/24/2016 Fred Lal R.N. Medication Administered: ZOFRAN [IVP] (ONDANSETRON HCL), Dose: 4 mg IVP over 2 minute(s), Site: #1 right wrist. Medication Ordered: Zofran IV 4 mg (NOW). Given :03/24/2016 Fred Lal R.N. Medication Administered: DILAUDID [IVP] (HYDROMORPHONE HCL PF), Dose: 0.5 mg IVP over 2 minute(s), Site: #1 right wrist. Medication Ordered: Dilaudid IV 0.5 mg (HIGH ALERT MEDICATION, NOW). Given :03/24/2016 Fred Lal R.N. Medication Administered: TORADOL [IVP], Dose: 30 mg IVP over 2 minute(s), Site: #1 right wrist. Medication Ordered: Toradol IV 30 mg (NOW).
--- NOTE | 2016-03-28 11:40 | ED MED RECONCILIATION SUMMARY ---
Patient: ORQUIDEA ALBARRAN Medication Reconciliation Report [facility] VisitID: [id number] [place] [address] 55y, M Registration Date/Time: 03/24/2016 Weight: 120.2 kg Height/Length: 69 in. BMI: 39.2 ALLERGIES: No Known Drug Allergy The patient's Home Medications are listed below: CONTINUE TAKING THE FOLLOWING MEDICATIONS: Levothyroxine Sodium Oral The source(s) of the original Home Medication information: Not obtained. The following Medications were given to the patient in the Emergency Department: IV NS IV Fluids bolus 500 mL over 30 minute(s), then 125 mL/hr, administered: 03/24/2016 9:22:00 PM Zofran [IVP] IVP 4 mg, administered: 03/24/2016 9:26:00 PM Dilaudid [IVP] IVP 0.5 mg, administered: 03/24/2016 9:32:00 PM Toradol [IVP] IVP 30 mg, administered: 03/24/2016 9:35:00 PM The following Medications were prescribed to the patient: Adams 5 mg / 325 mg tablets: take 1 orally every 6 hours as needed for pain. Dispense twelve (12). No refill. Substitution is permissible. -- Braulio Oliver Dr. Bactrim DS 800 mg / 160 mg: take 1 tablet orally every 12 hours for 10 days. Substitution is permissible.(Disp 20 tabs) -- Braulio Oliver Dr.
== END 2016-03-25 01:33 | disposition home or self-care (01) ==
LOC: ED SRH 19:58
DX: N30.01 Acute cystitis with hematuria (principal); E86.0 Dehydration; D72.829 Elevated white blood cell count, unspecified; E07.9 Disorder of thyroid, unspecified; Z85.048 Personal history of other malignant neoplasm of rectum, rectosigmoid junction, and anus; Z79.899 Other long term (current) drug therapy
CPT/HCPCS: 90004; 90100; 92235; 92530; 95059